=== PATIENT | male | born 1985 | race African-American/Black ===

== ENCOUNTER 2021-06-16 03:05 | Emergency (ER) | payer OTHER, SELFPAY ==
--- NOTE | ~2021-06-16 | XR_ITS ---
EXAMINATION: XR KNEE, RIGHT CLINICAL INFORMATION: Status post fall COMPARISON: None TECHNIQUE: Four views of the right knee. FINDINGS: Osseous alignment is anatomic. There is mild tricompartmental joint space narrowing and osteophyte formation. No acute fracture is seen. No significant effusion. XR/XR knee RT 2V IMPRESSION: No acute findings identified.
--- NOTE | 2021-06-16 03:21 | ED.FALL ---
HPI - Fall General Chief Complaint: Fall Stated Complaint: fall Time Seen by Provider: 06/16/21 03:20 Source: patient Mode of arrival: ambulatory Limitations: no limitations History of Present Illness HPI Narrative: Patient 350 lb slipped on the ice landed on his right knee complaining of pain right knee and lower back able to ambulate no other injuries not on any blood thinner no head injury no loss of conscious Related Data Previous Rx's Medication Instructions Recorded oxycodone-acetaminophen 5 mg-325 1 tab PO Q6H PRN #20 tab 06/16/21 mg tablet (Percocet) Allergies Allergy/AdvReac Type Severity Reaction Status Date / Time amoxicillin [AMOXICILLIN] Allergy Unknown ANGIOEDEMA Unverified 01/01/20 16:59 tramadol [TRAMADOL] Allergy Unknown ANGIOEDEMA Unverified 01/01/20 16:59 Review of Systems Review of Systems: Yes all other systems are reviewed and are negative [facility] Social History Social History Advance Directives: No Advance Directives Information Provided: No Physical Exam Vital Signs: Vital Signs: Last Vital Signs Temp 98.6 F 06/16/21 03:30 Pulse 98 06/16/21 03:30 Resp 22 H 06/16/21 03:30 BP 170/110 H 06/16/21 03:30 Pulse Ox 94 06/16/21 03:30 BMI result Body Mass Index 54.9 Appearance: Alert. Oriented X3. No acute distress. Obese HEENT: Pharynx normal. Oral Mucosa moist atraumatic normocephalic Neck: Normal inspection. Neck supple. No midline tenderness CVS: Normal heart rate and rhythm. Pulses normal. Respiratory: No respiratory distress. Equal air entry bilateral, Abdomen: Soft and nontender. Bowel sounds are present, no mass palpable, Skin: Skin warm and dry. Normal skin color. Normal skin turgor. Extremities: No lower extremity edema. No calf tenderness, right knee diffuse tenderness no deformity superficial abrasion Neuro: Oriented X 3. No motor deficit. MDM - Fall MDM Narrative Medical decision making narrative: Patient ambulatory status post fall on the ice knee x-ray negative for any fracture discharge patient home on pain medication Discharge Plan Discharge Clinical Impression: Contusion of knee, right Patient Disposition: Home, Self-Care Instructions: Contusion in Adults (ED) Additional Instructions: Rest at home pain medication as advised Prescriptions: New oxycodone-acetaminophen [Percocet] 5-325 mg tablet 1 tab PO Q6H PRN (Reason: pain) Qty: 20 0RF
[2021-06-16 03:30] VITALS: BP 170/110; PULSE 98; RESP 22; TEMP 37; O2SAT 94; BMI 54.9
[2021-06-16] MEDS: Ketorolac Tromethamine 60 MG/2 ML VIAL IM (04:14)
== END 2021-06-16 05:21 | disposition home or self-care (01) ==
PROVIDERS: Emergency Provider Internal Medicine
DX: S80.01XA Contusion of right knee, initial encounter (principal); W00.0XXA Fall on same level due to ice and snow, initial encounter; Y93.01 Activity, walking, marching and hiking; Y92.480 Sidewalk as the place of occurrence of the external cause; Y99.9 Unspecified external cause status
CPT/HCPCS: 73560; 96372; 99283; 99284; J1885

== ENCOUNTER 2023-03-29 16:27 | Emergency (ER) | payer OTHER, SELFPAY ==
[2023-03-29 17:25] VITALS: BP 133/90; PULSE 85; RESP 20; TEMP 36.3; O2SAT 100; BMI 67.8
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
== END 2023-03-29 17:37 | disposition home or self-care (01) ==
PROVIDERS: Emergency Provider Emergency Medicine; PCP Internal Medicine
DX: S39.92XA Unspecified injury of lower back, initial encounter (principal); M54.2 Cervicalgia; R51.9 Headache, unspecified; V43.52XA Car driver injured in collision with other type car in traffic accident, initial encounter; Y93.9 Activity, unspecified; Y92.410 Unspecified street and highway as the place of occurrence of the external cause; Y99.9 Unspecified external cause status
CPT/HCPCS: 99282; 99283